=== PATIENT | female | born 1990 | race Caucasian/White ===

== ENCOUNTER 2017-03-20 19:06 | Emergency (ER) | payer MEDICAID ==
[2017-03-20] MEDS ORDERED: Sodium Chloride 0.9% 1,000 ML IV ONE (19:53)
--- NOTE | 2017-03-20 20:28 | EDM.PDOC ---
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 Patient indicates that she is and she is uncertain if she is at the end of her first trimester the beginning of her second trimester. It's her menstrual cycles have never been regular but she did have a baby 5 months ago and initiated sexual activity approximately 6 weeks after delivery. Review of systems: As per history of present illness and below otherwise all systems reviewed and negative. Past medical history: As per history of present illness and as reviewed below otherwise noncontributory. Surgical history: As per history of present illness and as reviewed below otherwise noncontributory. Social history: No reported history of drug or alcohol abuse. Family history: As per history of present illness and as reviewed below otherwise noncontributory. Physical exam: HEENT: Atraumatic, normocephalic, pupils reactive, negative for conjunctival pallor or scleral icterus, mucous membranes moist with oropharyngeal erythema without white patchy exudate, bilateral TMs noted to be red and dull and bulging , neck supple with some cervical lymphadenopathy, trachea midline. Lungs: Clear to auscultation, breath sounds equal bilaterally, chest nontender. Heart: S1S2, regular, negative for clicks, rubs, or JVD. Abdomen: Soft, nondistended, nontender. Negative for masses or hepatosplenomegaly. Negative for costovertebral tenderness. Pelvis: Stable nontender. Genitourinary: Pelvic exam revealed a closed cervical os with some amount of frothy yellow creamy discharge DNA samples obtained. Rectal: Deferred. Extremities: Atraumatic, negative for cords or calf pain. Neurovascular unremarkable. Neuro: Awake, alert, oriented. Cranial nerves II through XII unremarkable. Cerebellum unremarkable. Motor and sensory unremarkable throughout. Exam nonfocal. Ultrasound indicated a single live intrauterine of 15 weeks Diagnostics: [CBC, CMP, UA, hCG, DNA probe for treat Garden candidiasis, GC urine, ultrasound ] Therapeutics: [IV fluid, 250 mg of Rocephin IM 1 g of azithromycin by mouth and Flagyl 500 mg here with a prescription for 500 mg twice a day 7 days] Impression: [BV, yeast, trichomoniasis] Plan: [Medicated here follow-up with OB] Definitive disposition and diagnosis as appropriate pending reevaluation and review of above. abdomen Pain Score (Numeric/FACES): 10 - Related Data Allergies Allergy/AdvReac Type Severity Reaction Status Date / Time amoxicillin [From Augmentin] Allergy Hives Verified 03/20/17 19:29 cefdinir [From Omnicef] Allergy Hives Verified 03/20/17 19:29 clavulanic acid Allergy Hives Verified 03/20/17 19:29 [From Augmentin] erythromycin ethylsuccinate Allergy Hives Verified 03/20/17 19:29 [From Pediazole] Sulfa (Sulfonamide Allergy Hives Verified 03/20/17 19:29 Antibiotics) sulfisoxazole acetyl Allergy Hives Verified 03/20/17 19:29 [From Pediazole] Home Meds: Home Meds ALPRAZolam 1 tab PO DAILY PRN 08/04/15 [History] Albuterol Sulfate [Proair Respiclick] 2 puff IH Q4H PRN 08/04/15 [History] Escitalopram [Lexapro] 30 mg PO DAILY 08/04/15 [History] Acetaminophen/HYDROcodone [Spencer 325-5 MG] 1 tab PO Q4H PRN #30 tablet 08/05/15 [Rx] Levofloxacin [Levaquin] 750 mg PO DAILY #10 tab 08/05/15 [Rx] Metronidazole [IJD: metroNIDAZOLE] 500 mg PO .EVERY 12 HOURS #14 tab 03/20/17 [ Rx] Past Medical History HEENT History: Reports: None Cardiovascular History: Reports: None Respiratory History: Reports: Asthma Gastrointestinal History: Reports: Gastritis Genitourinary History: Reports: STD 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: Reports: Polycystic Ovaries, Musculoskeletal History: Reports: None Other Musculoskeletal History: scoliosis, buldging discs Neurological History: Reports: None Psychiatric History: Reports: Anxiety, Depression, Panic Attack, PTSD Endocrine/Metabolic History: Reports: Diabetes, Type II, Hyperthyroidism Other Endocrine/Metabolic History: DM resolved 4 years ago Hematologic History: Reports: Anemia Immunologic History: Reports: None Oncologic (Cancer) History: Reports: None Dermatologic History: Reports: None - Infectious Disease History Infectious Disease History: Reports: Chicken Pox - Past Surgical History HEENT Surgical History: Reports: Adenoidectomy, Myringotomy w Tube(s), Tonsillectomy Social & Family History - Family History HEENT: Reports: Allergic Rhinitis, Cataract, Glaucoma, Impaired Vision, Sinusitis, Other (See Below) Other HEENT Family History: Retinal stenosis Cardiac: Reports: Arrhythmia, Heart Murmur, [place], Stent Respiratory: Reports: Asthma, COPD, Other (See Below) Other Respiratory Family Hisory: Emphysema GI: Reports: Colon Polyps, Diverticulitis, GERD, Irritable Bowel Syndrome OBGYN: Reports: Musculoskeletal: Reports: Arthritis, Back pain, Chronic, Fibromyalgia, Osteoporosis, RA Neurological: Reports: Migraines, MS Psychiatric: Reports: Anxiety, Depression, OCD, Schizophrenia Endocrine/Metabolic: Reports: Diabetes, Type I, Diabetes, type II, Hyperthyroidism, Hypothyroidism, Osteoporosis, Vitamin D Deficiency, Other (See Below) Other Endocrine/Metabolic Family History: Graves disease Hematologic: Reports: Anemia Dermatologic: Reports: Psoriasis Oncologic: Reports: Breast, Colon, Ovarian - Tobacco Use Smoking Status *Q: Current Every Day Smoker Years of Tobacco use: 10 Packs/Tins Daily: 0.5 Used Tobacco, but Quit: No Second Hand Smoke Exposure: Yes - Caffeine Use Caffeine Use: Reports: Soda - Alcohol Use Days Per Week of Alcohol Use: 0 - Recreational Drug Use Recreational Drug Use: No Drug Use in Last 12 Months: No Recreational Drug Type: Reports: Marijuana/Hashish Recreational Drug Use Frequency: Not Used In Over 1 Year ED ROS GENERAL - Review of Systems Review Of Systems: See Below (See history of present illness) ED EXAM, GENERAL - Physical Exam Exam: See Below (See history of present illness) Course - Vital Signs Last Recorded V/S: Last Vital Signs Temp 36.2 C 03/20/17 23:43 Pulse 91 03/20/17 23:43 Resp 16 03/20/17 23:43 BP 119/80 03/20/17 23:43 Pulse Ox 98 03/20/17 23:43 - Orders/Labs/Meds Orders: Active Orders 24 hr Category Date Time Status OB 1st Tri Sgl 1st Gest [US] Stat Exams 03/20/17 19:50 Taken CHLAMYDIA TRACHOMATIS/GC AMPLF Stat Lab 03/20/17 21:41 Received CULTURE URINE [] Stat Lab 03/20/17 21:34 Received Labs: Laboratory Tests 03/20/17 03/20/17 03/20/17 Range/Units 20:11 20:11 20:11 WBC 14.80 H (4.0-11.0) K/uL RBC 4.35 (4.30-5.90) M/uL Hgb 12.5 (12.0-16.0) g/dL Hct 37.5 (36.0-46.0) % MCV 86.2 (80.0-98.0) fL MCH 28.7 (27.0-32.0) pg MCHC 33.3 (31.0-37.0) g/dL RDW Std Deviation 47.0 (28.0-62.0) fl RDW Coeff of Quinn 15 (11.0-15.0) % Plt Count 310 (150-400) K/uL MPV 9.30 (7.40-12.00) fL Neut % (Auto) 48.5 (48.0-80.0) % Lymph % (Auto) 36.7 (16.0-40.0) % [place] % (Auto) 6.4 (0.0-15.0) % Eos % (Auto) 8.2 H (0.0-7.0) % Baso % (Auto) 0.2 (0.0-1.5) % Neut # (Auto) 7.2 H (1.4-5.7) K/uL Lymph # (Auto) 5.4 H (0.6-2.4) K/uL [place] # (Auto) 1.0 H (0.0-0.8) K/uL Eos # (Auto) 1.2 H (0.0-0.7) K/uL Baso # (Auto) 0.0 (0.0-0.1) K/uL Nucleated RBC % 0.0 /100WBC Nucleated RBCs # 0 K/uL Sodium (136-146) mmol/L Potassium (3.5-5.1) mmol/L Chloride (98-110) mmol/L Carbon Dioxide (21-31) mmol/L BUN (6.0-23.0) mg/dL Creatinine (0.6-1.5) mg/dL Est Cr Clr Drug Dosing mL/min Estimated GFR (MDRD) ml/min Glucose (60-110) mg/dL Calcium (8.8-10.8) mg/dL Total Bilirubin (0.1-1.5) mg/dL AST (5-40) IU/L ALT (8-54) IU/L Alkaline Phosphatase (40-150) Total Protein (6.0-8.0) g/dL Albumin (3.5-5.0) g/dL Globulin (2.0-3.5) g/dL Albumin/Globulin Ratio (1.3-2.8) HCG, Quant 02332.4 mIU/mL Urine Color Urine Appearance Urine pH (5.0-8.0) Ur Specific Welcome (1.001-1.035) Urine Protein (NEGATIVE) mg/dL Urine Glucose (UA) (NEGATIVE) mg/dL Urine Ketones (NEGATIVE) mg/dL Urine Occult Blood (NEGATIVE) Urine Nitrite (NEGATIVE) Urine Bilirubin (NEGATIVE) Urine Urobilinogen (<2.0) EU/dL Ur Leukocyte Esterase (NEGATIVE) Urine RBC (0-2/HPF) Urine WBC (0-5/HPF) Ur Epithelial Cells (NONE-FEW) Urine Bacteria (NEGATIVE) Yisel species DNA (NEGATIVE) Gardnerella DNA Probe Trichomonas DNA Probe (NEGATIVE) Blood Type A POSITIVE 03/20/17 03/20/17 03/20/17 Range/Units 20:11 21:34 21:41 WBC (4.0-11.0) K/uL RBC (4.30-5.90) M/uL Hgb (12.0-16.0) g/dL Hct (36.0-46.0) % MCV (80.0-98.0) fL MCH (27.0-32.0) pg MCHC (31.0-37.0) g/dL RDW Std Deviation (28.0-62.0) fl RDW Coeff of Quinn (11.0-15.0) % Plt Count (150-400) K/uL MPV (7.40-12.00) fL Neut % (Auto) (48.0-80.0) % Lymph % (Auto) (16.0-40.0) % [place] % (Auto) (0.0-15.0) % Eos % (Auto) (0.0-7.0) % Baso % (Auto) (0.0-1.5) % Neut # (Auto) (1.4-5.7) K/uL Lymph # (Auto) (0.6-2.4) K/uL [place] # (Auto) (0.0-0.8) K/uL Eos # (Auto) (0.0-0.7) K/uL Baso # (Auto) (0.0-0.1) K/uL Nucleated RBC % /100WBC Nucleated RBCs # K/uL Sodium 138 (136-146) mmol/L Potassium 3.9 (3.5-5.1) mmol/L Chloride 106 (98-110) mmol/L Carbon Dioxide 21 (21-31) mmol/L BUN 5 L (6.0-23.0) mg/dL Creatinine 0.5 L (0.6-1.5) mg/dL Est Cr Clr Drug Dosing 153.43 mL/min Estimated GFR (MDRD) > 60.0 ml/min Glucose 82 (60-110) mg/dL Calcium 9.3 (8.8-10.8) mg/dL Total Bilirubin 0.3 (0.1-1.5) mg/dL AST 15 (5-40) IU/L ALT 10 (8-54) IU/L Alkaline Phosphatase 75 (40-150) Total Protein 6.8 (6.0-8.0) g/dL Albumin 4.0 (3.5-5.0) g/dL Globulin 2.8 (2.0-3.5) g/dL Albumin/Globulin Ratio 1.4 (1.3-2.8) HCG, Quant mIU/mL Urine Color YELLOW Urine Appearance CLEAR Urine pH 6.5 (5.0-8.0) Ur Specific Welcome <= 1.005 (1.001-1.035) Urine Protein NEGATIVE (NEGATIVE) mg/dL Urine Glucose (UA) NEGATIVE (NEGATIVE) mg/dL Urine Ketones NEGATIVE (NEGATIVE) mg/dL Urine Occult Blood NEGATIVE (NEGATIVE) Urine Nitrite NEGATIVE (NEGATIVE) Urine Bilirubin NEGATIVE (NEGATIVE) Urine Urobilinogen 0.2 (<2.0) EU/dL Ur Leukocyte Esterase NEGATIVE (NEGATIVE) Urine RBC 0-1 (0-2/HPF) Urine WBC 0-1 (0-5/HPF) Ur Epithelial Cells RARE (NONE-FEW) Urine Bacteria RARE (NEGATIVE) Yisel species DNA POSITIVE H (NEGATIVE) Gardnerella DNA Probe POSITIVE Trichomonas DNA Probe POSITIVE H (NEGATIVE) Blood Type Meds: Medications Discontinued Medications Generic Name Dose Route Start Last Admin Trade Name Oly PRN Reason Stop Dose Admin Azithromycin 1,000 mg 03/20/17 22:59 03/20/17 23:21 Zithromax PO 03/20/17 23:00 1,000 mg Q24H ONE Administration Ceftriaxone Sodium 250 mg 03/20/17 22:59 03/20/17 23:20 Rocephin IM 03/20/17 23:00 250 mg ONETIME ONE Administration Sodium Chloride 1,000 mls @ 999 mls/hr 03/20/17 19:53 03/20/17 20:12 Normal Saline IV 03/20/17 20:53 999 mls/hr STAT ONE Administration Lidocaine HCl Confirm 03/20/17 23:16 03/20/17 23:21 Xylocaine-Mpf 1% Administered 03/20/17 23:17 1 ml Dose Administration 2 mls @ as directed .ROUTE .STK-MED ONE Metronidazole 500 mg 03/20/17 23:00 03/20/17 23:22 Metronidazole PO 03/20/17 23:01 500 mg ONETIME ONE Administration Departure - Departure Time of Disposition: 23:50 Disposition: Home, Self-Care 01 Condition: Good Clinical Impression: Bacterial vaginosis, Candidal vulvovaginitis, Trichomoniasis of vagina - Discharge Information Prescriptions: Metronidazole [IJD: metroNIDAZOLE] 500 mg PO .EVERY 12 HOURS #14 tab Instructions: Vaginal Yeast Infection, Adult Referrals: PCP,None [Primary Care Provider] - Forms: ED Department Discharge Additional Instructions: The following information is given to patients seen in the emergency department who are being discharged to home. This information is to outline your options for follow-up care. We provide all patients seen in our emergency department with a follow-up referral. The need for follow-up, as well as the timing and circumstances, are variable depending upon the specifics of your emergency department visit. If you don't have a primary care physician on staff, we will provide you with a referral. We always advise you to contact your personal physician following an emergency department visit to inform them of the circumstance of the visit and for follow-up with them and/or the need for any referrals to a consulting specialist. The emergency department will also refer you to a specialist when appropriate. This referral assures that you have the opportunity for follow-up care with a specialist. All of these measure are taken in an effort to provide you with optimal care, which includes your follow-up. Under all circumstances we always encourage you to contact your private physician who remains a resource for coordinating your care. When calling for follow-up care, please make the office aware that this follow-up is from your recent emergency room visit. If for any reason you are refused follow-up, please contact the [facility] Emergency Department at and asked to speak to the emergency department charge nurse. You may go ahead and get [id number] yeast medication to apply topically as discussed per your preference You have been treated here for for the positive cultures as discussed Findings OB KASEY as discussed Return to ED as needed as discussed
[2017-03-20 21:21] LABS: CHLORIDE,CL 106 mmol/L (98-110); SODIUM,NA 138 mmol/L (136-146)
[2017-03-20] MEDS ORDERED: cefTRIAXone 250 MG Vial IM ONE (22:59)
[2017-03-20] MEDS ORDERED: Azithromycin 250 MG Tab PO ONE (22:59)
[2017-03-20] MEDS ORDERED: metroNIDAZOLE 250 MG Tab PO ONE (23:00)
[2017-03-20] MEDS ORDERED: Lidocaine 1% 2 ML ONE (23:16)
[2017-03-20 23:47] VITALS: BP 119/80
--- NOTE | 2017-03-21 10:03 | US ---
EXAM DATE: 03/20/17 PATIENT'S AGE: 26 Patient: LOU MOSCOSO Facility: [place], [place] Site . Site : 1990 Study: OB Pelvis [id number]/14/2017 9:26:01 PM Ordering Physician: Doctor Fish Final Report: INDICATION: Pelvic pain. TECHNIQUE: Ultrasound pelvis, OB transabdominal. COMPARISON: None available. FINDINGS: Single living intrauterine in cephalic presentation with heart rate of 150 beats per minute. Posterior placenta is otherwise unremarkable in appearance. Normal-appearing umbilical cord. Normal appearing amniotic fluid index of 10.9 cm. Closed cervical length of 3.4 cm. Bilateral ovaries are within normal limits. Normal-appearing color Doppler flow in the ovaries. Biparietal diameter is 3 cm corresponding to 15 weeks 3 days. Head circumference is 11.1 cm corresponding to 15 weeks 3 days. Abdominal circumference is 8.9 cm corresponding to 15 weeks 1 day. Femur length is 1.5 cm corresponding to 14 weeks 3 days. IMPRESSION: Single living intrauterine with estimated age of 15 weeks 0 days. Dictated by Tony Hernandez MD @ 03/20/2017 9:54:53 PM Dictated by: Tony Hernandez MD @ 03/20/2017 21:55:05 (Electronic Signature) Report Signed by Proxy. PEDRO
== END 2017-03-20 23:50 | disposition home or self-care (01) ==
LOC: MW.ED 19:06
DX: O98.312 Other infections with a predominantly sexual mode of transmission complicating pregnancy, second trimester (principal); A59.01 Trichomonal vulvovaginitis; O98.812 Other maternal infectious and parasitic diseases complicating pregnancy, second trimester; B37.3 Candidiasis of vulva and vagina; O99.342 Other mental disorders complicating pregnancy, second trimester; F41.0 Panic disorder [episodic paroxysmal anxiety]; F32.9 Major depressive disorder, single episode, unspecified; O99.282 Endocrine, nutritional and metabolic diseases complicating pregnancy, second trimester; E11.9 Type 2 diabetes mellitus without complications; O99.332 Smoking (tobacco) complicating pregnancy, second trimester; F17.210 Nicotine dependence, cigarettes, uncomplicated; Z86.2 Personal history of diseases of the blood and blood-forming organs and certain disorders involving the immune mechanism; Z96.22 Myringotomy tube(s) status; Z98.890 Other specified postprocedural states; Z88.1 Allergy status to other antibiotic agents; Z88.2 Allergy status to sulfonamides; Z79.899 Other long term (current) drug therapy; Z79.2 Long term (current) use of antibiotics; Z3A.15 15 weeks gestation of pregnancy
CPT/HCPCS: 36415; 76801; 80053; 81001; 84702; 85025; 86900; 86901; 87086; 87480; 87491; 87510; 87591; 87660; 96361; 96374; 99284; A9270; J0696; J7040

== ENCOUNTER 2017-04-03 16:48 | Emergency (ER) | payer MEDICAID ==
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
[2017-04-03 17:24] VITALS: BP 130/64
== END 2017-04-03 17:15 | disposition home or self-care (01) ==
LOC: MW.ED 16:48
DX: O99.89 Other specified diseases and conditions complicating pregnancy, childbirth and the puerperium (principal); R10.9 Unspecified abdominal pain; O99.512 Diseases of the respiratory system complicating pregnancy, second trimester; J45.909 Unspecified asthma, uncomplicated; O99.332 Smoking (tobacco) complicating pregnancy, second trimester; F17.210 Nicotine dependence, cigarettes, uncomplicated; O24.112 Pre-existing type 2 diabetes mellitus, in pregnancy, second trimester; E11.9 Type 2 diabetes mellitus without complications; O99.282 Endocrine, nutritional and metabolic diseases complicating pregnancy, second trimester; E05.90 Thyrotoxicosis, unspecified without thyrotoxic crisis or storm; O99.342 Other mental disorders complicating pregnancy, second trimester; F41.0 Panic disorder [episodic paroxysmal anxiety]; F32.9 Major depressive disorder, single episode, unspecified; Z86.2 Personal history of diseases of the blood and blood-forming organs and certain disorders involving the immune mechanism; Z79.899 Other long term (current) drug therapy; Z88.2 Allergy status to sulfonamides; Z3A.17 17 weeks gestation of pregnancy
CPT/HCPCS: 99282; 99283

== ENCOUNTER 2017-06-13 18:05 | Observation (INO) | payer MEDICAID ==
[2017-06-13] MEDS ORDERED: Ondansetron 4 MG Tab.DIS PO PRN (18:37)
[2017-06-13] MEDS ORDERED: hydrOXYzine Pamoate 25 MG Cap PO PRN (18:38)
[2017-06-13] MEDS: Betamethasone Acetate/Betamethasone Sod Phosphate 30 MG/5 ML MDV IM SCH (19:49)
[2017-06-13] MEDS: Lactated Ringers 1,000 ML IV SCH (20:15)
[2017-06-13] MEDS: Magnesium Hydroxide 400 MG/5 ML Susp 30 ML Cup PO PRN (21:38)
[2017-06-14] MEDS: Lactated Ringers 1,000 ML IV SCH ×2 (04:15→12:06)
[2017-06-14 07:28] VITALS: BP 109/61
[2017-06-14] MEDS: Magnesium Hydroxide 400 MG/5 ML Susp 30 ML Cup PO PRN ×2 (07:38→12:06)
[2017-06-14] MEDS: Acetaminophen 325 MG Tab PO PRN ×2 (08:17→14:00)
[2017-06-14] MEDS ORDERED: Prenatal Multivitamin and Multimineral with Iron Tab PO SCH (09:00)
[2017-06-14] MEDS: Betamethasone Acetate/Betamethasone Sod Phosphate 30 MG/5 ML MDV IM SCH (19:11)
== END 2017-06-14 19:18 | disposition home or self-care (01) ==
LOC: MW.OBCHECK 18:05 → MW.OB 18:06 → MW.OBCHECK 18:31 → MW.OB 18:31
PROVIDERS: ADMIT Obstetrics & Gynecology; ATTEND Obstetrics & Gynecology
DX: O60.02 Preterm labor without delivery, second trimester (principal); Z3A.27 27 weeks gestation of pregnancy; O99.89 Other specified diseases and conditions complicating pregnancy, childbirth and the puerperium; M54.9 Dorsalgia, unspecified; R10.2 Pelvic and perineal pain; K59.00 Constipation, unspecified
CPT/HCPCS: 59025; 87081; 96360; 96361; 96372; A9270; G0378; J0702; J7120

== ENCOUNTER 2017-08-22 16:09 | Inpatient (IN) | payer MEDICAID ==
[2017-08-22] MEDS ORDERED: Misoprostol 200 MCG Tab PO PRN (16:33)
[2017-08-22] MEDS ORDERED: Terbutaline 1 MG/ML SDV SUBCUT PRN (16:33)
[2017-08-22] MEDS ORDERED: Carboprost Tromethamine 250 MCG/1 ML Amp IM PRN (16:33)
[2017-08-22] MEDS ORDERED: Sodium Chloride 0.9% 10 ML Syringe FLUSH PRN (16:33)
[2017-08-22] MEDS ORDERED: Methylergonovine 0.2 MG/1 ML Amp IM PRN ×2 (16:33→23:30)
[2017-08-22] MEDS ORDERED: Sodium Chloride 0.9% 2.5 ML Syringe FLUSH PRN (16:33)
[2017-08-22] MEDS ORDERED: Lidocaine 1% 50 ML MDV INJECT PRN (16:33)
[2017-08-22] MEDS ORDERED: Water For Irrigation,Sterile 1,000 ML Container IRR PRN (16:33)
[2017-08-22] MEDS ORDERED: Nalbuphine 10 MG/1 ML Vial IVPUSH PRN (16:33)
[2017-08-22] MEDS ORDERED: Butorphanol 1 MG/ML SDV IVPUSH PRN (16:33)
[2017-08-22] MEDS ORDERED: Oxytocin/0.9 % Sodium Chloride 30 UNIT/500 ML BAG IV SCH ×2 (16:45)
[2017-08-22] MEDS ORDERED: Clindamycin Phosphate in D5W 900 MG in Premix Bag 1 BAG IV SCH ×2 (16:45)
[2017-08-22] MEDS: Lactated Ringers 1,000 ML IV SCH ×3 (17:15→21:56)
[2017-08-22] MEDS ORDERED: Ropivacaine HCl/PF 100 ML ONE (21:19)
[2017-08-22] MEDS ORDERED: fentaNYL 100 MCG/2 ML SDV ONE (21:19)
--- NOTE | 2017-08-22 21:54 | PCM.PREANE ---
Preanesthetic Assessment - Anesthesia/Transfusion/Family Hx Anesthesia History: Prior Anesthesia Without Reaction Transfusion History: No Prior Transfusion(s) - Review of Systems General: No Symptoms Pulmonary: No Symptoms Cardiovascular: No Symptoms Gastrointestinal: No Symptoms Neurological: No Symptoms Other: Reports: None - Physical Assessment NPO Status Date: 08/22/17 NPO Status Time: 21:53 (sips/chips) Blood Pressure: 123/75 Height: 5 ft 5 in Weight: 159 lb ASA Class: 2 Mental Status: Alert & Oriented x3 Airway Class: Mallampati = 2 Dentition: Reports: Normal Dentition Thyro-Mental Finger Breadths: 3 Mouth Opening Finger Breadths: 3 - Lab Values: Laboratory Last Values WBC 16.98 K/uL (4.0-11.0) H 08/22/17 17:02 RBC 3.93 M/uL (4.30-5.90) L 08/22/17 17:02 Hgb 11.0 g/dL (12.0-16.0) L 08/22/17 17:02 Hct 32.7 % (36.0-46.0) L 08/22/17 17:02 MCV 83.2 fL (80.0-98.0) 08/22/17 17:02 MCH 28.0 pg (27.0-32.0) 08/22/17 17:02 MCHC 33.6 g/dL (31.0-37.0) 08/22/17 17:02 RDW Std Deviation 49.2 fl (28.0-62.0) 08/22/17 17:02 RDW Coeff of Quinn 16 % (11.0-15.0) H 08/22/17 17:02 Plt Count 385 K/uL (150-400) 08/22/17 17:02 MPV 9.30 fL (7.40-12.00) 08/22/17 17:02 Nucleated RBC % 0.0 /100WBC 08/22/17 17:02 Nucleated RBCs # 0 K/uL 08/22/17 17:02 Blood Type A POSITIVE 08/22/17 17:02 Antibody Screen NEGATIVE 08/22/17 17:02 - Allergies Allergies/Adverse Reactions: Allergies Allergy/AdvReac Type Severity Reaction Status Date / Time erythromycin base Allergy Hives Verified 05/14/17 17:35 [From Pediazole] Sulfa (Sulfonamide Allergy Hives Verified 04/03/17 17:02 Antibiotics) sulfisoxazole Allergy Hives Verified 05/14/17 17:35 [From Pediazole] - Blood Blood Available: No Product(s) Available: None - Anesthesia Plan Free Text/Narrative:: Labor Epidural - Acknowledgements Anesthesia Type Planned: Epidural Pt an Appropriate Candidate for the Planned Anesthesia: Yes Alternatives and Risks of Anesthesia Discussed w Pt/Guardian: Yes Pt/Guardian Understands and Agrees with Anesthesia Plan: Yes PreAnesthesia Questionnaire - Past Health History Medical/Surgical History: Denies Medical/Surgical History HEENT History: Reports: None Cardiovascular History: Reports: None Respiratory History: Reports: Asthma Gastrointestinal History: Reports: Gastritis Genitourinary History: Reports: STD 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 HOST History: Reports: Polycystic Ovaries, Musculoskeletal History: Reports: None Other Musculoskeletal History: scoliosis, buldging discs Neurological History: Reports: None Psychiatric History: Reports: Anxiety, Depression, Panic Attack, PTSD Endocrine/Metabolic History: Reports: Diabetes, Type II, Hyperthyroidism Other Endocrine/Metabolic History: DM resolved 4 years ago Hematologic History: Reports: Anemia Immunologic History: Reports: None Oncologic (Cancer) History: Reports: None Dermatologic History: Reports: None - Infectious Disease History Infectious Disease History: Reports: Chicken Pox - Past Surgical History HEENT Surgical History: Reports: Adenoidectomy, Myringotomy w Tube(s), Tonsillectomy - SUBSTANCE USE Smoking Status *Q: Current Every Day Smoker Tobacco Use Within Last Twelve Months: Cigarettes Second Hand Smoke Exposure: Yes Days Per Week of Alcohol Use: 0 Recreational Drug Use History: No Recreational Drug Type: Reports: Marijuana/Hashish - HOME MEDS Home Medications: Home Meds ALPRAZolam 1 tab PO DAILY PRN 08/04/15 [History] - CURRENT (IN HOUSE) MEDS Current Meds: Current Medications Butorphanol Tartrate (Stadol) 1 mg IVPUSH Q1H PRN PRN Reason: Pain Carboprost Tromethamine (Hemabate Ds) 250 mcg IM ASDIRECTED PRN PRN Reason: Post Hemorrhage Clindamycin Phosphate 900 mg/ (Premix) 50 mls @ 100 mls/hr IV Q8H [facility] Last Admin: 08/22/17 17:24 Dose: 100 mls/hr Lactated Ringer's (Ringers, Lactated) 1,000 mls @ 150 mls/hr IV ASDIRECTED [facility] Last Admin: 08/22/17 21:22 Dose: 999 mls/hr Oxytocin/Sodium Chloride (Oxytocin 30 Unit/500 Ml-Ns) 30 unit in 500 mls @ 250 mls/hr IV TITRATE [facility] Oxytocin/Sodium Chloride (Oxytocin 30 Unit/500 Ml-Ns) 30 unit in 500 mls @ 2 mls/hr IV TITRATE [facility]; 2 MUNITS/MIN PRN Reason: Protocol Last Titration: 08/22/17 21:29 Dose: 10 munits/min, 10 mls/hr Lidocaine HCl (Xylocaine 1%) 50 ml INJECT .ONCE PRN PRN Reason: Laceration repair Methylergonovine Maleate (Methergine) 0.2 mg IM ASDIRECTED PRN PRN Reason: Post Hemorrhage Misoprostol (Cytotec) 200 mcg PO .ONCE PRN PRN Reason: Post Hemorrhage Nalbuphine HCl (Nubain) 10 mg IVPUSH Q1H PRN PRN Reason: Pain (severe 7-10) Last Admin: 08/22/17 19:41 Dose: 10 mg Sodium Chloride (Saline Flush) 10 ml FLUSH ASDIRECTED PRN PRN Reason: Keep Vein Open Sodium Chloride (Saline Flush) 2.5 ml FLUSH ASDIRECTED PRN PRN Reason: Keep Vein Open Sterile Water (Sterile Water For Irrigation) 1,000 ml IRR ASDIRECTED PRN PRN Reason: delivery Terbutaline Sulfate (Brethine) 0.25 mg SUBCUT ASDIRECTED PRN PRN Reason: Tacysystole Discontinued Medications Fentanyl (Sublimaze) Confirm Administered Dose 100 mcg .ROUTE .STK-MED ONE Stop: 08/22/17 21:20 Ropivacaine (Naropin 0.2%) Confirm Administered Dose 100 mls @ as directed .ROUTE .STK-MED ONE Stop: 08/22/17 21:20
[2017-08-22] MEDS ORDERED: Docusate Sodium 100 MG Cap PO PRN (23:30)
[2017-08-22] MEDS ORDERED: Benzocaine/Menthol 20%-0.5% Spray 78 GM Cannister TOP PRN (23:30)
[2017-08-22] MEDS ORDERED: Lanolin 100% Cream 7 GM Tube TOP PRN (23:30)
[2017-08-22] MEDS ORDERED: Ibuprofen 800 MG Tab PO PRN (23:30)
[2017-08-22] MEDS ORDERED: Witch Hazel Medicated Pads 40/Jar TOP PRN (23:30)
[2017-08-22] MEDS ORDERED: Bisacodyl 10 MG Supp RECTAL PRN (23:30)
--- NOTE | 2017-08-23 01:37 | OR ---
SURGEON: Marta Romero M.D. DATE OF PROCEDURE: 08/22/2017 PREOPERATIVE DIAGNOSES: A 37-5/7th week intrauterine , polyhydramnios, suspected intrauterine growth restriction, and abnormal testing. POSTOPERATIVE DIAGNOSES: A 37-5/7th week intrauterine , polyhydramnios, suspected intrauterine growth restriction, and abnormal testing. PROCEDURE: Pitocin induction of labor, term spontaneous vaginal delivery. ANESTHESIA: Epidural. ESTIMATED BLOOD LOSS: Less than 300 mL. FINDINGS: Live born female, score 8 and 9, weighing 2760 grams. Placenta spontaneous, Schultze intact with 3 vessels, perineum intact. BRIEF HISTORY: This is a 26-year-old female, she is G5, P 2-0-2-2, presents to Labor and Delivery after having had her weekly biophysical in the clinic. Ultrasound portion of the biophysical was 4 out of 8, and after approximately 1 hour of monitoring, she did have a reactive strip giving her an overall biophysical of 6 out of 10. Estimated weight by ultrasound was 5 pounds 2 ounces. With suspected IUGR, a decision was therefore made to proceed with induction of labor. She received Pitocin IV. She received an epidural for pain control. She did have category 1 heart tones throughout labor. She had artificial rupture of membranes. White meconium was noted. She progressed to complete. DESCRIPTION OF PROCEDURE: With the patient in dorsal lithotomy position, the patient pushed over a 3- minute time period to a 5+ station, at which time the head was delivered spontaneously and atraumatically over the perineum with support with subsequent delivery of the 's shoulders and body without any difficulty. The infant was bulb suctioned by nose and mouth, and after the cord had ceased to pulsate, it was doubly clamped and cut and the was handed to the mother in the presence of the nurse attending delivery. Dr. Barreto was also in attendance at delivery. The was a liveborn female, score 8 and 9, weighing 2760 grams. Cord blood was collected for cord ABGs as well as routine cord blood sampling. Pitocin was initiated after delivery of the infant to assist with delivery of the placenta which was delivered spontaneously, Schultze intact with 3 vessels. Upon inspection of the pelvis and perineum, there were no periurethral, vaginal sidewall, cervical, rectal, or perineal lacerations. Mother and baby are in LDRP in good condition. There were no known complications. Final sponge and instrument counts were correct. ELSA PATEL /[id number]
[2017-08-23] MEDS: Nicotine 14 MG/24 Hr Patch TRDERM SCH (03:55)
[2017-08-23] MEDS: Acetaminophen 500 MG Tab PO PRN ×3 (06:25→20:14)
--- NOTE | 2017-08-23 07:07 | PCM.PNPP ---
- General Info Functional Status: Reports: Pain Controlled, Tolerating Diet, Ambulating, Urinating - Review of Systems General: Reports: No Symptoms HEENT: Reports: No Symptoms Pulmonary: Reports: No Symptoms Cardiovascular: Reports: No Symptoms Gastrointestinal: Reports: No Symptoms Genitourinary: Reports: No Symptoms Musculoskeletal: Reports: No Symptoms Skin: Reports: No Symptoms Neurological: Reports: No Symptoms Psychiatric: Reports: No Symptoms - Patient Data Vital Signs - Most Recent: Last Vital Signs Temp Pulse Resp BP 123/75 08/22/17 21:54 Pulse Ox Weight - Most Recent: 72.121 kg Lab Results - Last 24 Hours: Laboratory Results - last 24 hr 08/22/17 08/22/17 08/23/17 Range/Units 17:02 17:02 05:32 WBC 16.98 H (4.0-11.0) K/uL RBC 3.93 L (4.30-5.90) M/uL Hgb 11.0 L 10.1 L (12.0-16.0) g/dL Hct 32.7 L 31.1 L (36.0-46.0) % MCV 83.2 (80.0-98.0) fL MCH 28.0 (27.0-32.0) pg MCHC 33.6 (31.0-37.0) g/dL RDW Std Deviation 49.2 (28.0-62.0) fl RDW Coeff of Quinn 16 H (11.0-15.0) % Plt Count 385 (150-400) K/uL MPV 9.30 (7.40-12.00) fL Nucleated RBC % 0.0 /100WBC Nucleated RBCs # 0 K/uL Blood Type A POSITIVE Antibody Screen NEGATIVE Med Orders - Current: Current Medications Acetaminophen (Tylenol Extra Strength) 1,000 mg PO Q4H PRN PRN Reason: Pain Last Admin: 08/23/17 06:25 Dose: 1,000 mg Benzocaine/Menthol (Dermoplast Pain Relief 20%-0.5% [place]) 78 gm TOP ASDIRECTED PRN PRN Reason: Perineal Comfort Measure Last Admin: 08/23/17 01:58 Dose: 1 can Bisacodyl (Dulcolax) 10 mg RECTAL .ONCE PRN PRN Reason: Constipation Docusate Sodium (Colace) 100 mg PO BID PRN PRN Reason: Constipation Emollient Ointment (Lansinoh Hpa) 0 gm TOP ASDIRECTED PRN PRN Reason: Sore Nipples Ketorolac Tromethamine (Toradol) 30 mg IVPUSH Q6H [facility] Stop: 08/28/17 07:00 Methylergonovine Maleate (Methergine) 0.2 mg IM .ONCE PRN PRN Reason: Excessive Vaginal Bleeding Nicotine (Habitrol) 14 mg TRDERM DAILY [facility] Last Admin: 08/23/17 03:55 Dose: 14 mg [place] G[place] (Tucks) 1 pad TOP ASDIRECTED PRN PRN Reason: comfort care Last Admin: 08/23/17 01:58 Dose: 1 tub Discontinued Medications Butorphanol Tartrate (Stadol) 1 mg IVPUSH Q1H PRN PRN Reason: Pain Carboprost Tromethamine (Hemabate Ds) 250 mcg IM ASDIRECTED PRN PRN Reason: Post Hemorrhage Fentanyl (Sublimaze) Confirm Administered Dose 100 mcg .ROUTE .STK-MED ONE Stop: 08/22/17 21:20 Clindamycin Phosphate 900 mg/ (Premix) 50 mls @ 100 mls/hr IV Q8H [facility] Last Admin: 08/22/17 17:24 Dose: 100 mls/hr Lactated Ringer's (Ringers, Lactated) 1,000 mls @ 150 mls/hr IV ASDIRECTED [facility] Last Admin: 08/22/17 21:56 Dose: 150 mls/hr Oxytocin/Sodium Chloride (Oxytocin 30 Unit/500 Ml-Ns) 30 unit in 500 mls @ 250 mls/hr IV TITRATE [facility] Oxytocin/Sodium Chloride (Oxytocin 30 Unit/500 Ml-Ns) 30 unit in 500 mls @ 2 mls/hr IV TITRATE [facility]; 2 MUNITS/MIN PRN Reason: Protocol Last Titration: 08/22/17 23:10 Dose: 999 munits/min, 999 mls/hr Ropivacaine (Naropin 0.2%) Confirm Administered Dose 100 mls @ as directed .ROUTE .STK-MED ONE Stop: 08/22/17 21:20 Ibuprofen (Motrin) 800 mg PO Q6H PRN PRN Reason: Pain Last Admin: 08/23/17 01:59 Dose: 800 mg Lidocaine HCl (Xylocaine 1%) 50 ml INJECT .ONCE PRN PRN Reason: Laceration repair Methylergonovine Maleate (Methergine) 0.2 mg IM ASDIRECTED PRN PRN Reason: Post Hemorrhage Misoprostol (Cytotec) 200 mcg PO .ONCE PRN PRN Reason: Post Hemorrhage Nalbuphine HCl (Nubain) 10 mg IVPUSH Q1H PRN PRN Reason: Pain (severe 7-10) Last Admin: 08/22/17 19:41 Dose: 10 mg Sodium Chloride (Saline Flush) 10 ml FLUSH ASDIRECTED PRN PRN Reason: Keep Vein Open Sodium Chloride (Saline Flush) 2.5 ml FLUSH ASDIRECTED PRN PRN Reason: Keep Vein Open Sterile Water (Sterile Water For Irrigation) 1,000 ml IRR ASDIRECTED PRN PRN Reason: delivery Last Admin: 08/22/17 23:27 Dose: 1,000 ml Terbutaline Sulfate (Brethine) 0.25 mg SUBCUT ASDIRECTED PRN PRN Reason: Tacysystole - Infant Interaction Infant Disposition, : at Bedside Support Person: Mother, Sister - Recovery Exam Fundal Tone: Firm Fundal Level: At Umbilicus Fundal Placement: Midline Lochia Amount: Scant Lochia Color: Rubra/Red Perineum Description: Intact, Minimal Bruising/Swelling Episiotomy/Laceration: None Bladder Status: Voiding Urinary Elimination: Voided - Exam General: Alert, Oriented Lungs: Normal Respiratory Effort GI/Abdominal Exam: Soft, Non-Tender, No Organomegaly, No Distention - Problem List & Annotations (1) IUGR (intrauterine growth retardation), delivered, current hospitalization SNOMED Code(s): 01037620 Code(s): O36.5990 - MATERN CARE FOR OTH OR SUSP POOR FETL GRTH, UNSP TRI, UNSP Status: Acute Current Visit: Yes (2) (spontaneous vaginal delivery) SNOMED Code(s): 12319318 Code(s): O80 - ENCOUNTER FOR FULL-TERM UNCOMPLICATED DELIVERY Status: Acute Priority: Medium Current Visit: No - Problem List Review Problem List Initiated/Reviewed/Updated: Yes - My Orders Last 24 Hours: My Active Orders 08/22/17 16:33 Bedrest Bathroom Privileges [RC] ASDIRECTED Communication Order [RC] ASDIRECTED Communication Order [RC] ASDIRECTED Heart Tones [RC] CONTINUOUS Non Stress Test [RC] PER UNIT ROUTINE May Shower [RC] ASDIRECTED Notify Provider [RC] PRN Notify Provider [RC] PRN Oxygen Therapy [RC] ASDIRECTED Up ad Soni [RC] ASDIRECTED Vaginal Exam [RC] PRN Vital Signs [RC] PER UNIT ROUTINE 08/22/17 23:27 Urinary Catheter Assessment [RC] ASDIRECTED 08/22/17 23:30 Acetaminophen [Tylenol Extra Strength] 1,000 mg PO Q4H PRN Benzocaine/Menthol [Dermoplast Pain Relief 20%-0.5% [place]] 78 gm TOP ASDIRECTED PRN Bisacodyl [Dulcolax] 10 mg RECTAL .ONCE PRN Docusate Sodium [Colace] 100 mg PO BID PRN Lanolin [Lansinoh HPA] See Dose Instructions TOP ASDIRECTED PRN Methylergonovine [Methergine] 0.2 mg IM .ONCE PRN Nicotine [Habitrol] 14 mg TRDERM DAILY [place] Bat[place] [Tucks] 1 pad TOP ASDIRECTED PRN Resuscitation Status Routine 08/22/17 23:31 Patient Status [ADT] Routine May Shower [RC] ASDIRECTED Up ad Soni [RC] ASDIRECTED Vital Signs [RC] PER UNIT ROUTINE Assess Lochia [WOMSER] Per Unit Routine Assess Uterine Involution [WOMSER] Per Unit Routine Peripheral IV Discontinue [OM.PC] Routine 08/23/17 02:30 Insert Urinary Catheter [OM.PC] Q24H 08/23/17 07:00 Ketorolac [Toradol] 30 mg IVPUSH Q6H 08/23/17 Breakfast Regular Diet [DIET] - Assessment Assessment:: PPD#1 after stable minimal lochia.on nicotrol patch for tobacco use - Plan Plan:: Continue care, start ketorolac due to complaint of back pain at epidural site and crampy pain. Dr. Butt will cover this weekend, anticipate home tomorrow.
[2017-08-23] MEDS: Ketorolac 30 MG/ML SDV IVPUSH SCH ×3 (08:00→22:28)
--- NOTE | 2017-08-23 14:01 | PCM48HPAN ---
Post Anesthesia Note - EVALUATION WITHIN 48HRS OF ANESTHETIC Vital Signs in Normal Range: Yes Patient Participated in Evaluation: No Respiratory Function Stable: Yes Airway Patent: Yes Cardiovascular Function Stable: Yes Hydration Status Stable: Yes Pain Control Satisfactory: Yes Nausea and Vomiting Control Satisfactory: Yes Mental Status Recovered: Yes - COMMENTS/OBSERVATIONS Free Text/Narrative:: c/o low back pain per RN. Pt up ambulating unable to interview
[2017-08-24] MEDS: Nicotine 14 MG/24 Hr Patch TRDERM SCH (00:38)
[2017-08-24] MEDS: Ketorolac 30 MG/ML SDV IVPUSH SCH (05:08)
--- NOTE | 2017-08-24 08:17 | PCM.PNPP ---
- General Info Date of Service: 08/24/17 Admission Dx/Problem (Free Text): 26 yo P3 s/p PPD2 Subjective Update: patient seen at bedside , complains of back pain. ambulating , voiding and tolerating regular diet Functional Status: Reports: Pain Controlled, Tolerating Diet, Ambulating, Urinating - Review of Systems General: Reports: No Symptoms HEENT: Reports: No Symptoms Pulmonary: Reports: No Symptoms Cardiovascular: Reports: No Symptoms Gastrointestinal: Reports: No Symptoms Genitourinary: Reports: No Symptoms Musculoskeletal: Reports: No Symptoms Skin: Reports: No Symptoms Neurological: Reports: No Symptoms - General Info Date of Service: 08/24/17 - Patient Data Vital Signs - Most Recent: Last Vital Signs Temp 37.2 C 08/23/17 20:00 Pulse 87 08/23/17 20:00 Resp 14 08/23/17 20:00 BP 121/75 08/23/17 20:00 Pulse Ox 100 08/23/17 20:00 Weight - Most Recent: 72.121 kg Med Orders - Current: Current Medications Acetaminophen (Tylenol Extra Strength) 1,000 mg PO Q4H PRN PRN Reason: Pain Last Admin: 08/23/17 20:14 Dose: 1,000 mg Benzocaine/Menthol (Dermoplast Pain Relief 20%-0.5% [place]) 78 gm TOP ASDIRECTED PRN PRN Reason: Perineal Comfort Measure Last Admin: 08/23/17 01:58 Dose: 1 can Bisacodyl (Dulcolax) 10 mg RECTAL .ONCE PRN PRN Reason: Constipation Docusate Sodium (Colace) 100 mg PO BID PRN PRN Reason: Constipation Last Admin: 08/23/17 08:00 Dose: 100 mg Emollient Ointment (Lansinoh Hpa) 0 gm TOP ASDIRECTED PRN PRN Reason: Sore Nipples Last Admin: 08/23/17 22:27 Dose: 1 tube Ketorolac Tromethamine (Toradol) 30 mg IVPUSH Q6H [facility] Stop: 08/28/17 07:00 Last Admin: 08/24/17 05:08 Dose: 30 mg Methylergonovine Maleate (Methergine) 0.2 mg IM .ONCE PRN PRN Reason: Excessive Vaginal Bleeding Nicotine (Habitrol) 14 mg TRDERM DAILY [facility] Last Admin: 08/24/17 00:38 Dose: Not Given [place] Batres (Tucks) 1 pad TOP ASDIRECTED PRN PRN Reason: comfort care Last Admin: 08/23/17 01:58 Dose: 1 tub Discontinued Medications Butorphanol Tartrate (Stadol) 1 mg IVPUSH Q1H PRN PRN Reason: Pain Carboprost Tromethamine (Hemabate Ds) 250 mcg IM ASDIRECTED PRN PRN Reason: Post Hemorrhage Fentanyl (Sublimaze) Confirm Administered Dose 100 mcg .ROUTE .STK-MED ONE Stop: 08/22/17 21:20 Clindamycin Phosphate 900 mg/ (Premix) 50 mls @ 100 mls/hr IV Q8H [facility] Last Admin: 08/22/17 17:24 Dose: 100 mls/hr Lactated Ringer's (Ringers, Lactated) 1,000 mls @ 150 mls/hr IV ASDIRECTED [facility] Last Admin: 08/22/17 21:56 Dose: 150 mls/hr Oxytocin/Sodium Chloride (Oxytocin 30 Unit/500 Ml-Ns) 30 unit in 500 mls @ 250 mls/hr IV TITRATE [facility] Oxytocin/Sodium Chloride (Oxytocin 30 Unit/500 Ml-Ns) 30 unit in 500 mls @ 2 mls/hr IV TITRATE [facility]; 2 MUNITS/MIN PRN Reason: Protocol Last Titration: 08/22/17 23:10 Dose: 999 munits/min, 999 mls/hr Ropivacaine (Naropin 0.2%) Confirm Administered Dose 100 mls @ as directed .ROUTE .STK-MED ONE Stop: 08/22/17 21:20 Ibuprofen (Motrin) 800 mg PO Q6H PRN PRN Reason: Pain Last Admin: 08/23/17 01:59 Dose: 800 mg Lidocaine HCl (Xylocaine 1%) 50 ml INJECT .ONCE PRN PRN Reason: Laceration repair Methylergonovine Maleate (Methergine) 0.2 mg IM ASDIRECTED PRN PRN Reason: Post Hemorrhage Misoprostol (Cytotec) 200 mcg PO .ONCE PRN PRN Reason: Post Hemorrhage Nalbuphine HCl (Nubain) 10 mg IVPUSH Q1H PRN PRN Reason: Pain (severe 7-10) Last Admin: 08/22/17 19:41 Dose: 10 mg Sodium Chloride (Saline Flush) 10 ml FLUSH ASDIRECTED PRN PRN Reason: Keep Vein Open Sodium Chloride (Saline Flush) 2.5 ml FLUSH ASDIRECTED PRN PRN Reason: Keep Vein Open Sterile Water (Sterile Water For Irrigation) 1,000 ml IRR ASDIRECTED PRN PRN Reason: delivery Last Admin: 08/22/17 23:27 Dose: 1,000 ml Terbutaline Sulfate (Brethine) 0.25 mg SUBCUT ASDIRECTED PRN PRN Reason: Tacysystole - Infant Interaction Infant Disposition, : at Bedside Support Person: Mother, Sister - Recovery Exam Fundal Tone: Firm Fundal Level: At Umbilicus Fundal Placement: Midline Lochia Amount: Scant Lochia Color: Rubra/Red Perineum Description: Intact, Minimal Bruising/Swelling Episiotomy/Laceration: None Bladder Status: Voiding Urinary Elimination: Voided - Exam General: Alert, Oriented HEENT: Pupils Equal, Pupils Reactive Lungs: Clear to Auscultation, Normal Respiratory Effort Cardiovascular: Regular Rate, Regular Rhythm GI/Abdominal Exam: Normal Bowel Sounds Psy/Mental Status: Alert - Problem List & Annotations (1) (spontaneous vaginal delivery) SNOMED Code(s): 21448925 Code(s): O80 - ENCOUNTER FOR FULL-TERM UNCOMPLICATED DELIVERY Status: Acute Priority: Medium Current Visit: No - Problem List Review Problem List Initiated/Reviewed/Updated: Yes - Assessment Assessment:: PPD#2 after stable minimal lochia.on nicotrol patch for tobacco use - Plan Plan:: Pain control with OTC tylenol and Motrin vitamins and Iron Follow up with [facility] in 6 weeks Call [facility] if Fever > 101, Heavy vaginal bleeding > 1pad in 1 hr
[2017-08-24 08:22] VITALS: BP 108/72
== END 2017-08-24 11:45 | disposition home or self-care (01) | DRG 775 ==
LOC: MW.OBCHECK 16:09 → MW.OB 16:30 → MW.OBCHECK 16:33 → OBSVTOIN 23:10
PROVIDERS: ADMIT Obstetrics & Gynecology; ATTEND Obstetrics & Gynecology
PROC: 10E0XZZ Delivery of Products of Conception, External Approach (ICD-10-PCS; principal; 2017-08-22)
PROC: 3E0P3VZ Introduction of Hormone into Female Reproductive, Percutaneous Approach (ICD-10-PCS; 2017-08-22)
DX: O40.3XX0 Polyhydramnios, third trimester, not applicable or unspecified (principal); O36.5930 Maternal care for other known or suspected poor fetal growth, third trimester, not applicable or unspecified; O99.334 Smoking (tobacco) complicating childbirth; Z3A.37 37 weeks gestation of pregnancy; Z37.0 Single live birth
CPT/HCPCS: 36415; 51702; 59025; 59409; 85014; 85018; 85027; 86850; 86900; 86901; A9270-GY; J1885; J2300; J2590; J2795; J3010; J7120

== ENCOUNTER 2021-08-05 16:31 | Emergency (ER) | payer MEDICAID ==
[2021-08-05] MEDS ORDERED: Sodium Chloride 0.9% 1,000 ML IV ONE (17:22)
[2021-08-05 17:30] VITALS: BP 144/95; PULSE 108
[2021-08-05 18:01] LABS: BLOOD UREA NITROGEN,BUN 13 mg/dL (7.0-18.0); CARBON DIOXIDE,CO2 32.1 mmol/L (21.0-32.0); CHLORIDE,CL 96 mmol/L (98-107); GLUCOSE RANDOM 153 mg/dL (74-106); LIPASE 28 U/L (73-393); POTASSIUM,K 3.4 mmol/L (3.5-5.1); SODIUM,NA 133 mmol/L (136-145)
[2021-08-05] MEDS ORDERED: Ondansetron 4 MG/2 ML SDV IVPUSH ONE (18:04)
[2021-08-05] MEDS ORDERED: Ketorolac 30 MG/ML SDV IVPUSH ONE (18:04)
--- NOTE | 2021-08-05 18:11 | EDM.PDOC ---
ED HPI GENERAL MEDICAL PROBLEM - General Chief Complaint: Gastrointestinal Problem Stated Complaint: ABDOMINAL PAIN Time Seen by Provider: 08/05/21 17:01 Source of Information: Reports: Patient History Limitations: Reports: No Limitations - History of Present Illness INITIAL COMMENTS - FREE TEXT/NARRATIVE: HISTORY AND PHYSICAL: History of present illness: Patient is a 30-year-old female who presents emergency room today with concern of right lower quadrant abdominal pain x2 days. Patient states that she is also had intermittent fevers off and on and is nauseous. Patient states that overall, she has been more constipated and has an issue with constipation at her baseline as she is on Suboxone. Patient states that she has been more constipated more than usual along with her other symptoms. Patient states she does have a history of scoliosis but denies any other health history. Patient states that she did take an Excedrin earlier today for her fever. Patient states that she did have Covid approximately 2 weeks ago Patient denies chest pain, shortness of breath, or cough. Denies headache, neck stiff ness, change in vision, syncope, or near syncope. Denies vomiting, diarrhea, or dysuria. Has not noted any blood in urine or stool. Patient has been eating and drinking appropriately. Review of systems: As per history of present illness and below otherwise all systems reviewed and negative. Past medical history: As per history of present illness and as reviewed below otherwise noncontributory. Surgical history: As per history of present illness and as reviewed below otherwise noncontributory. Social history: See social history for further information Family history: As per history of present illness and as reviewed below otherwise noncontribut ory. Physical exam: General: Patient is alert, oriented, and in no acute distress. Patient laying comfortably on exam table. Patient is tachycardic 115's on exam, otherwise vitally stable. Patient is tired appearing. HEENT: Atraumatic, normocephalic, pupils equal and reactive bilaterally, negative for conjunctival pallor or scleral icterus, mucous membranes moist, throat clear, neck supple, nontender, trachea midline. No drooling or trismus noted. No meningeal signs. No hot potato voice noted. Lungs: Clear to auscultation, breath sounds equal bilaterally, chest nontender. Heart: S1S2, regular rate and rhythm without overt murmur Abdomen: Soft, nondistended, moderate RLQ tenderness w/o guarding, negative rebound/Condon. Negative for masses or hepatosplenomegaly. Negative for costovertebral tenderness. Pelvis: Stable nontender. Genitourinary: Deferred. Rectal: Deferred. Skin: Intact, warm, dry. No lesions or rashes noted. Extremities: Atraumatic, negative for cords or calf pain. Neurovascular unremarkable. Neuro: Awake, alert, oriented. Cranial nerves II through XII unremarkable. Cerebellum unremarkable. Motor and sensory unremarkable throughout. Exam nonfocal. Medical Decision Making: Patient is an otherwise healthy 30-year-old female presents emergency room today with concern of right lower quadrant abdominal pain, decreased appetite/nausea, intermittent fever x2 days. Upon arrival to the ED, patient is tachycardic 115's on exam, otherwise vitally stable. Patient is tired appearing on exam but otherwise well. Patient does have moderate right lower quadrant tenderness without guarding, negative rebound and Condon. Will establish IV access, provide a dose of Toradol for pain at this time, and fluids. Will also obtain basic lab work and abdominal pelvic CT scan. CBC does show a leukocytosis at 13.62 otherwise mild derangements of CBC unremarkable. CMP does show mild hyponatremia at 133, hypokalemia at 3.4, hypochloremia at 96. Carbon dioxide is mildly elevated at 32.1. Glucose mildly elevated at 153. Alk phos mildly elevated in isolation at 132. Otherwise mild derangements of CMP unremarkable. hCG is negative. Urine does show trace protein with 40 ketones, concerning for possible dehydration. Moderate bilirubin with 2 urobilinogen. Patient does have 10-13 red blood cells with 0-2 white blood cells. Note that she is on her menstrual cycle at this time. Abdominal pelvic CT scan shows marked colonic bowel wall thickening and inflammatory change involving the ascending colon, and proximal and mid transverse colon most likely reflecting infectious or inflammatory colitis. Small amount of fluid in the pelvis. Normal appendix. Upon reevaluation of patient, she remains tachycardic 110s on exam, otherwise vitally stable. She does have improvement of her pain and discomfort today with therapeutics in the emergency room. Patient states that she has not had any blood in her stool and has not had any diarrhea and has been actually rather constipated. I did highly recommend admission to patient for continued IV antibiotics and monitoring given a known source of infection, her elevated white blood cell count, tachycardia, and concern for sepsis. However, patient declines requesting to leave the emergency room. The patient is clinically not intoxicated, free from distracting pain, appears to have intact insight, judgment and reason and in my medical opinion has the capacity to make decisions. The patient is also not under any duress to leave the hospital. In this scenario, it would be battery to subject a patient to treatment against her will. I have voiced my concerns for the patient's health given that a full evaluation and treatment had not occurred. I have discussed the need for continued evaluation to determine if her symptoms are caused by a condition that present risk of or morbidity. Risks including but not limited to , permanent disability, prolonged hospitalization, prolonged illness, were dis cussed. Because I have been unable to convince the patient to stay, I answered all of her questions about her condition and asked her to return to the ED as soon as possible to complete her evaluation, especially if her symptoms worsen or do not improve. I emphasized that leaving against medical advice does not preclude returning here for further evaluation. I asked the patient to return if she changes her mind about the further evaluation and treatment. I strongly encouraged the patient to return to this Emergency Department or any Emergency Department at any time, particularly with worsening symptoms. Given that patient is leaving the emergency room, I will provider with outpatient stool collection supplies for possible source of colitis. I will also send patient antibiotics to the pharmacy. I did discuss with patient the importance for follow-up with her primary care provider and for colonoscopy consideration with general surgery. Diagnostics: CBC, CMP, UA, serum hCG, lipase, lactate, blood cultures x2, abdominal pelvic CT scan Therapeutics: NS, Toradol, Zofran, Ciprofloxacin Prescription: Ciprofloxacin, outpatient stool studies Impression: Colitis SEPSIS Left against medical advice Plan: 1. Take medication as prescribed. Stool collection supplies have been provided to you. Once you are able to leave a stool sample, return this to the lab for further diagnostic completion. 2. Follow-up with a primary care provider/general surgery as discussed. Return to the ED as needed and as discussed. Definitive disposition and diagnosis as appropriate pending reevaluation and review of above. Bilateral Abdominal Pain Score (Numeric/FACES): 8 - Related Data Allergies Allergy/AdvReac Type Severity Reaction Status Date / Time erythromycin base Allergy Hives Verified 08/05/21 17:17 [From Pediazole] Sulfa (Sulfonamide Allergy Hives Verified 08/05/21 17:17 Antibiotics) sulfisoxazole Allergy Hives Verified 08/05/21 17:17 [From Pediazole] Home Meds: Home Meds ALPRAZolam 1 tab PO DAILY PRN 08/04/15 [History] Ibuprofen [IJD: Ibuprofen] 800 mg PO Q6H PRN #20 tablet 08/23/17 [Rx] Buprenorphine HCl/Naloxone HCl [Suboxone 4 mg-1 mg Sl Film] 08/05/21 [History] Ciprofloxacin [Ciprofloxacin HCl] 500 mg PO BID 5 Days #10 tab 08/05/21 [Rx] Phentermine HCl [Lomaira] 08/05/21 [History] dexAMETHasone [Dexamethasone] 08/05/21 [History] Past Medical History - Past Health History Medical/Surgical History: Denies Medical/Surgical History HEENT History: Reports: None Cardiovascular History: Reports: None Respiratory History: Reports: Asthma Gastrointestinal History: Reports: Gastritis Genitourinary History: Reports: [employer] History: Reports: Polycystic Ovaries, Musculoskeletal History: Reports: None Other Musculoskeletal History: scoliosis, buldging discs Neurological History: Reports: None Psychiatric History: Reports: Anxiety, Depression, Panic Attack, PTSD Endocrine/Metabolic History: Reports: Diabetes, Type II, Hyperthyroidism Other Endocrine/Metabolic History: DM resolved 4 years ago Hematologic History: Reports: Anemia Immunologic History: Reports: None Oncologic (Cancer) History: Reports: None Dermatologic History: Reports: None - Infectious Disease History Infectious Disease History: Reports: Chicken Pox - Past Surgical History HEENT Surgical History: Reports: Adenoidectomy, Myringotomy w Tube(s), Tonsillectomy Other HEENT Surgeries/Procedures: Myringotomy 14years ago Social & Family History - Family History Family Medical History: No Pertinent Family History HEENT: Reports: Allergic Rhinitis, Cataract, Glaucoma, Impaired Vision, Sinusi tis, Other (See Below) Other HEENT Family History: Retinal stenosis Cardiac: Reports: Arrhythmia, Heart Murmur, SD, Stent Respiratory: Reports: Asthma, COPD, Other (See Below) Other Respiratory Family Hisory: Emphysema GI: Reports: Colon Polyps, Diverticulitis, GERD, Irritable Bowel Syndrome OBGYN: Reports: Musculoskeletal: Reports: Arthritis, Back pain, Chronic, Fibromyalgia, Osteoporosis, RA Neurological: Reports: Migraines, MS Psychiatric: Reports: Anxiety, Depression, OCD, Schizophrenia Endocrine/Metabolic: Reports: Diabetes, Type I, Diabetes, type II, Hyperthyroidism, Hypothyroidism, Osteoporosis, Vitamin D Deficiency, Other (See Below) Other Endocrine/Metabolic Family History: Graves disease Hematologic: Reports: Anemia Dermatologic: Reports: Psoriasis Oncologic: Reports: Breast, Colon, Ovarian - Tobacco Use Tobacco Use Status *Q: Current Every Day Tobacco User Years of Tobacco use: 10 Packs/Tins Daily: 1 - Caffeine Use Caffeine Use: Reports: Coffee, Soda - Recreational Drug Use Recreational Drug Use: No ED ROS GENERAL - Review of Systems Review Of Systems: Comprehensive ROS is negative, except as noted in HPI. ED EXAM, GENERAL - Physical Exam Exam: See Below (see dictation) Course - Vital Signs Last Recorded V/S: Last Vital Signs Temp 98.6 F 08/05/21 17:29 Pulse 108 H 08/05/21 17:29 Resp 18 08/05/21 17:29 BP 144/95 H 08/05/21 17:29 Pulse Ox 99 08/05/21 17:29 - Orders/Labs/Meds Orders: Active Orders 24 hr Category Date Time Status C DIFFICILE AG/TOXIN W/REFLEX [RM] Stat Lab 08/05/21 19:27 Ordered CULTURE BLOOD [BC] Stat Lab 08/05/21 19:04 Received CULTURE BLOOD [BC] Stat Lab 08/05/21 19:14 Received OVA & PARASITES BY IMMUNOASSAY [MREF] Stat Lab 08/05/21 19:27 Ordered STOOL CULTURE/SHIGA TOXIN [MREF] Stat Lab 08/05/21 19:27 Ordered Blood Culture x2 Reflex Set [OM.PC] Stat Oth 08/05/21 18:10 Ordered Labs: Laboratory Tests 08/05/21 08/05/21 08/05/21 Range/Units 17:30 17:30 17:30 WBC 13.62 H (4.0-11.0) K/uL RBC 4.79 (4.30-5.90) M/uL Hgb 15.2 (12.0-16.0) g/dL Hct 43.5 (36.0-46.0) % MCV 90.8 (80.0-98.0) fL MCH 31.7 (27.0-32.0) pg MCHC 34.9 (31.0-37.0) g/dL RDW Std Deviation 43.3 (28.0-62.0) fl RDW Coeff of Quinn 13 (11.0-15.0) % Plt Count 251 (150-400) K/uL MPV 9.90 (7.40-12.00) fL Neut % (Auto) 68.4 (48.0-80.0) % Lymph % (Auto) 18.5 (16.0-40.0) % [place] % (Auto) 11.5 (0.0-15.0) % Eos % (Auto) 1.4 (0.0-7.0) % Baso % (Auto) 0.2 (0.0-1.5) % Neut # (Auto) 9.3 H (1.4-5.7) K/uL Lymph # (Auto) 2.5 H (0.6-2.4) K/uL [place] # (Auto) 1.6 H (0.0-0.8) K/uL Eos # (Auto) 0.2 (0.0-0.7) K/uL Baso # (Auto) 0.0 (0.0-0.1) K/uL Nucleated RBC % 0.0 /100WBC Nucleated RBCs # 0 K/uL Sodium 133 L (136-145) mmol/L Potassium 3.4 L (3.5-5.1) mmol/L Chloride 96 L (98-107) mmol/L Carbon Dioxide 32.1 H (21.0-32.0) mmol/L BUN 13 (7.0-18.0) mg/dL Creatinine 0.7 (0.6-1.0) mg/dL Est Cr Clr Drug Dosing 101.48 mL/min Estimated GFR (MDRD) > 60.0 ml/min Glucose 153 H (74-106) mg/dL Lactic Acid (0.4-2.0) mmol/L Calcium 8.5 (8.5-10.1) mg/dL Total Bilirubin 0.3 (0.2-1.0) mg/dL AST 16 (15-37) IU/L ALT 18 (14-63) IU/L Alkaline Phosphatase 132 H (46-116) U/L Total Protein 7.5 (6.4-8.2) g/dL Albumin 3.0 L (3.4-5.0) g/dL Globulin 4.5 H (2.6-4.0) g/dL Albumin/Globulin Ratio 0.7 L (0.9-1.6) Lipase 28 L (73-393) U/L HCG, Qual (NEG) Urine Color DARK YELLOW Urine Appearance SLT CLOUDY Urine pH 6.5 (5.0-8.0) Ur Specific Tatum >= 1.030 (1.001-1.035) Urine Protein TRACE H (NEGATIVE) mg/dL Urine Glucose (UA) NEGATIVE (NEGATIVE) mg/dL Urine Ketones 40 H (NEGATIVE) mg/dL Urine Occult Blood SMALL H (NEGATIVE) Urine Nitrite NEGATIVE (NEGATIVE) Urine Bilirubin MODERATE H (NEGATIVE) Urine Ictotest NEGATIVE Urine Urobilinogen 2.0 H (<2.0) EU/dL Ur Leukocyte Esterase NEGATIVE (NEGATIVE) Urine RBC 10-13 (0-2/HPF) Urine WBC 0-2 (0-5/HPF) Ur Epithelial Cells MODERATE (NONE-FEW) Urine Bacteria FEW (NEGATIVE) Urine Mucus HEAVY (NONE-MOD) 08/05/21 08/05/21 Range/Units 17:30 19:04 WBC (4.0-11.0) K/uL RBC (4.30-5.90) M/uL Hgb (12.0-16.0) g/dL Hct (36.0-46.0) % MCV (80.0-98.0) fL MCH (27.0-32.0) pg MCHC (31.0-37.0) g/dL RDW Std Deviation (28.0-62.0) fl RDW Coeff of Quinn (11.0-15.0) % Plt Count (150-400) K/uL MPV (7.40-12.00) fL Neut % (Auto) (48.0-80.0) % Lymph % (Auto) (16.0-40.0) % [place] % (Auto) (0.0-15.0) % Eos % (Auto) (0.0-7.0) % Baso % (Auto) (0.0-1.5) % Neut # (Auto) (1.4-5.7) K/uL Lymph # (Auto) (0.6-2.4) K/uL [place] # (Auto) (0.0-0.8) K/uL Eos # (Auto) (0.0-0.7) K/uL Baso # (Auto) (0.0-0.1) K/uL Nucleated RBC % /100WBC Nucleated RBCs # K/uL Sodium (136-145) mmol/L Potassium (3.5-5.1) mmol/L Chloride (98-107) mmol/L Carbon Dioxide (21.0-32.0) mmol/L BUN (7.0-18.0) mg/dL Creatinine (0.6-1.0) mg/dL Est Cr Clr Drug Dosing mL/min Estimated GFR (MDRD) ml/min Glucose (74-106) mg/dL Lactic Acid 0.6 (0.4-2.0) mmol/L Calcium (8.5-10.1) mg/dL Total Bilirubin (0.2-1.0) mg/dL AST (15-37) IU/L ALT (14-63) IU/L Alkaline Phosphatase (46-116) U/L Total Protein (6.4-8.2) g/dL Albumin (3.4-5.0) g/dL Globulin (2.6-4.0) g/dL Albumin/Globulin Ratio (0.9-1.6) Lipase (73-393) U/L HCG, Qual NEGATIVE (NEG) Urine Color Urine Appearance Urine pH (5.0-8.0) Ur Specific Tatum (1.001-1.035) Urine Protein (NEGATIVE) mg/dL Urine Glucose (UA) (NEGATIVE) mg/dL Urine Ketones (NEGATIVE) mg/dL Urine Occult Blood (NEGATIVE) Urine Nitrite (NEGATIVE) Urine Bilirubin (NEGATIVE) Urine Ictotest Urine Urobilinogen (<2.0) EU/dL Ur Leukocyte Esterase (NEGATIVE) Urine RBC (0-2/HPF) Urine WBC (0-5/HPF) Ur Epithelial Cells (NONE-FEW) Urine Bacteria (NEGATIVE) Urine Mucus (NONE-MOD) Meds: Medications Discontinued Medications Generic Name Dose Route Start Last Admin Trade Name Freq PRN Reason Stop Dose Admin Sodium Chloride 1,000 mls @ 999 mls/hr 08/05/21 17:22 08/05/21 17:32 Normal Saline IV 08/05/21 18:22 999 mls/hr BOLUS ONE Administration Ciprofloxacin/Dextrose 400 mg/ 200 mls @ 200 mls/hr 08/05/21 19:28 08/05/21 19:41 Premix IV 08/05/21 20:27 200 mls/hr NOW STA Administration Iopamidol 100 ml 08/05/21 18:28 08/05/21 18:29 Iopamidol 755 Mg/Ml 500 Ml Multipack Bottle IVPUSH 08/05/21 18:29 100 ml ONETIME STA Administration Ketorolac Tromethamine 30 mg 08/05/21 18:04 08/05/21 18:44 Ketorolac 30 Mg/Ml Sdv IVPUSH 08/05/21 18:05 30 mg ONETIME ONE Administration Ondansetron HCl 4 mg 08/05/21 18:04 08/05/21 18:44 Ondansetron 4 Mg/2 Ml Sdv IVPUSH 08/05/21 18:05 4 mg ONETIME ONE Administration Departure - Departure Time of Disposition: 20:50 Disposition: Against Medical Advice 07 Clinical Impression: Colitis, Left against medical advice - Discharge Information Prescriptions: Ciprofloxacin [Ciprofloxacin HCl] 500 mg PO BID 5 Days #10 tab Referrals: Keith Hurley MD [Primary Care Provider] - Forms: ED Department Discharge Additional Instructions: The following information is given to patients seen in the emergency department who are being discharged to home. This information is to outline your options for follow-up care. We provide all patients seen in our emergency department with a follow-up referral. The need for follow-up, as well as the timing and circumstances, are variable depending upon the specifics of your emergency department visit. If you don't have a primary care physician on staff, we will provide you with a referral. We always advise you to contact your personal physician following an emergency department visit to inform them of the circumstance of the visit and for follow-up with them and/or the need for any referrals to a consulting specialist. The emergency department will also refer you to a specialist when appropriate. This referral assures that you have the opportunity for follow-up care with a specialist. All of these measure are taken in an effort to provide you with optimal care, which includes your follow-up. Under all circumstances we always encourage you to contact your private physician who remains a resource for coordinating your care. When calling for follow-up care, please make the office aware that this follow-up is from your recent emergency room visit. If for any reason you are refused follow-up, please contact the [facility] Emergency Department at and asked to speak to the emergency department charge nurse. [facility] [address] [place] [address] [facility] [address] [place] [address] [facility] Professional [facility] [address] [facility], [address] [place] [address] 1. Take medication as prescribed. Stool collection supplies have been provided to you. Once you are able to leave a stool sample, return this to the lab for further diagnostic completion. 2. Follow-up with a primary care provider/general surgery as discussed. Return to the ED as needed and as discussed. Sepsis Event Note (ED) - Focused Exam Vital Signs: Vital Signs Temp Pulse Resp BP Pulse Ox 08/05/21 17:29 98.6 F 108 H 18 144/95 H 99 - My Orders Last 24 Hours: My Active Orders 08/05/21 18:10 Blood Culture x2 Reflex Set [OM.PC] Stat 08/05/21 19:04 CULTURE BLOOD [BC] Stat 08/05/21 19:14 CULTURE BLOOD [BC] Stat 08/05/21 19:27 C DIFFICILE AG/TOXIN W/REFLEX [RM] Stat OVA & PARASITES BY IMMUNOASSAY [MREF] Stat STOOL CULTURE/SHIGA TOXIN [MREF] Stat - Assessment/Plan Last 24 Hours: My Active Orders 08/05/21 18:10 Blood Culture x2 Reflex Set [OM.PC] Stat 08/05/21 19:04 CULTURE BLOOD [BC] Stat 08/05/21 19:14 CULTURE BLOOD [BC] Stat 08/05/21 19:27 C DIFFICILE AG/TOXIN W/REFLEX [RM] Stat OVA & PARASITES BY IMMUNOASSAY [MREF] Stat STOOL CULTURE/SHIGA TOXIN [MREF] Stat
[2021-08-05] MEDS ORDERED: Iopamidol 755 MG/ML 500 ML Multipack Bottle IVPUSH STA (18:28)
--- NOTE | 2021-08-05 18:59 | CT ---
Indication: Right upper quadrant pain Technique: Contrast enhanced CT abdomen pelvis 100 mL Isovue 370 Comparison: No comparison Findings: Heart size is normal. There is no pericardial effusion. The lung bases are clear. Liver spleen pancreas gallbladder and adrenal glands unremarkable. Symmetric enhancement of both kidneys no hydronephrosis. IUD in the uterus urinary bladder unremarkable. Normal appendix. Marked colonic bowel wall thickening involving the cecum ascending colon and proximal to mid transverse colon with pericolonic inflammatory change and fluid. Prominent right lower quadrant mesenteric nodes likely reactive small amount of fluid in the pelvis no suspicious bony lesions. Impression: 1. Marked colonic bowel wall thickening and inflammatory change involving the ascending colon, in proximal and mid transverse colon most likely reflecting infectious or inflammatory colitis. Small amount of fluid in the pelvis. Normal appendix. Please note that all CT scans at this facility use dose modulation, iterative reconstruction, and/or weight-based dosing when appropriate to reduce radiation dose to as low as reasonably achievable. Dictated by Doreen Montaño MD @ 08/05/2021 6:59:11 PM (Electronically Signed)
[2021-08-05] MEDS ORDERED: Ciprofloxacin in D5W 400 MG in Premix Bag 1 BAG IV STA ×2 (19:28)
== END 2021-08-05 20:57 | disposition left against medical advice (07) ==
LOC: MW.ED 16:31
DX: A41.9 Sepsis, unspecified organism (principal); K52.9 Noninfective gastroenteritis and colitis, unspecified; E11.9 Type 2 diabetes mellitus without complications; Z72.0 Tobacco use; Z88.1 Allergy status to other antibiotic agents; Z88.2 Allergy status to sulfonamides; Z53.8 Procedure and treatment not carried out for other reasons
CPT/HCPCS: 36415; 74177; 80053; 81001; 83605; 83690; 84703; 85025; 87040; 96365; 96375; 99284; J0744; J1885; J2405; J7030; Q9967

== ENCOUNTER 2022-04-15 13:56 | Emergency (ER) | payer MEDICAID ==
[2022-04-15] MEDS ORDERED: Ketorolac 60 MG/2 ML SDV IM ONE (15:09)
[2022-04-15 16:11] VITALS: BP 108/69; PULSE 71
== END 2022-04-15 15:54 | disposition home or self-care (01) ==
LOC: MW.ED 13:56
DX: S61.252A Open bite of right middle finger without damage to nail, initial encounter (principal); J45.909 Unspecified asthma, uncomplicated; E11.9 Type 2 diabetes mellitus without complications; Z88.1 Allergy status to other antibiotic agents; Z88.2 Allergy status to sulfonamides; Z86.16 Personal history of COVID-19; Z79.899 Other long term (current) drug therapy; W54.0XXA Bitten by dog, initial encounter
CPT/HCPCS: 73140; 96372; 99283; J1885

== ENCOUNTER 2022-07-28 12:29 | Emergency (ER) | payer MEDICAID ==
[2022-07-28] MEDS ORDERED: Ondansetron 4 MG/2 ML SDV IVPUSH ONE (13:01)
[2022-07-28] MEDS ORDERED: Sodium Chloride 0.9% 1,000 ML IV ONE ×2 (13:01→13:08)
[2022-07-28] MEDS ORDERED: Ketorolac 30 MG/ML SDV IVPUSH ONE (13:02)
[2022-07-28] MEDS ORDERED: HYDROmorphone 1 MG/ML Syringe IVPUSH ONE (13:02)
[2022-07-28 13:38] LABS: CARBON DIOXIDE,CO2 29.2 mmol/L (21.0-32.0); POTASSIUM,K 3.3 mmol/L (3.5-5.1)
[2022-07-28] MEDS ORDERED: fentaNYL 50 MCG/ML SDV IVPUSH ONE ×2 (14:59→16:49)
[2022-07-28] MEDS ORDERED: Piperacillin/Tazobactam 3.375 GM in Sodium Chloride 0.9% 50 ML IV ONE (15:00)
[2022-07-28] MEDS ORDERED: Pantoprazole 80 MG in Sodium Chloride 0.9% 10 ML IVPUSH ONE (15:04)
[2022-07-28] MEDS ORDERED: Iopamidol 755 Mg/ML 100 ML Bottle IVPUSH ONE (15:08)
[2022-07-28] MEDS ORDERED: fentaNYL 50 MCG/ML SDV IVPUSH STA (17:44)
[2022-07-28 17:52] VITALS: BP 115/79
[2022-07-28 18:05] VITALS: PULSE 115
== END 2022-07-28 18:11 ==
LOC: MW.ED 12:29
DX: K25.1 Acute gastric ulcer with perforation (principal); E86.0 Dehydration; J45.909 Unspecified asthma, uncomplicated; E11.9 Type 2 diabetes mellitus without complications; R00.0 Tachycardia, unspecified; Z88.1 Allergy status to other antibiotic agents; Z88.2 Allergy status to sulfonamides; Z79.899 Other long term (current) drug therapy
CPT/HCPCS: 36415; 74177; 80053; 81003; 83605; 83690; 84703; 85025; 87040; 93005; 96361; 96365; 96367; 96375; 96376; 99285; C9113; J1170; J1885; J2405; J2543; J3010; J3370; J3490; J7030; J7050; Q9967; 93010

== ENCOUNTER 2023-11-08 11:35 | Emergency (ER) | payer MEDICAID ==
[2023-11-08] MEDS ORDERED: Ondansetron 4 MG Tab.DIS PO ONE (12:09)
[2023-11-08 12:38] LABS: BASOPHILS ABSOLUTE AUTO 0.05 K/uL (0.00-0.20); BASOPHILS PERCENT AUTO 0.4 % (0.0-1.0); EOSINOPHILS ABSOLUTE AUTO 0.52 K/uL (0.00-0.45); EOSINOPHILS PERCENT AUTO 4.2 % (0.0-6.0); HEMATOCRIT 43.7 % (37.0-47.0); HEMOGLOBIN 15.1 g/dL (12.0-16.0); IMMATURE GRAN ABSOLUTE AUTO 0.04 K/uL (0.00-0.05); IMMATURE GRAN PERCENT AUTO 0.3 % (0.0-0.4); LYMPHOCYTES ABSOLUTE AUTO 1.73 K/uL (1.00-4.80); MEAN CORPUSCULAR HEMOGLOBIN 32.3 pg (28.0-32.0); MEAN CORPUSCULAR HGB CONC 34.6 g/dL (32.0-36.0); MEAN CORPUSCULAR VOLUME 93.4 fL (83.0-99.0); MEAN PLATELET VOLUME 8.9 fL (9.4-12.3); MONOCYTES PERCENT AUTO 4.9 % (0.0-8.0); NEUTROPHILS ABSOLUTE AUTO 9.38 K/uL (1.80-7.70); NEUTROPHILS PERCENT AUTO 76.2 % (41.0-71.0); PLATELET COUNT,PLT 334 K/uL (150-400); RED BLOOD CELL COUNT 4.68 M/uL (4.10-5.30); WHITE BLOOD CELL COUNT,WBC 12.32 K/uL (3.9-11.3)
[2023-11-08 13:01] LABS: APPEARANCE,URINE CLEAR; BILIRUBIN,URINE NEGATIVE (NEGATIVE); COLOR,URINE YELLOW; GLUCOSE,URINE NEGATIVE (NEGATIVE); KETONES,URINE NEGATIVE (NEGATIVE); LEUKOCYTE ESTERASE,URINE NEGATIVE (NEGATIVE); NITRITE,URINE NEGATIVE (NEGATIVE); OCCULT BLOOD,URINE TRACE-INTACT (NEGATIVE); PH,URINE 5.5 (5.0-8.0); PROTEIN,URINE NEGATIVE (NEGATIVE); UROBILINOGEN,URINE 0.2 EU/dL (<2.0)
[2023-11-08 13:14] LABS: A/G RATIO 1.1 (0.9-1.6); ALBUMIN 3.9 g/dL (3.4-5.0); BILIRUBIN TOTAL 0.5 mg/dL (0.2-1.0); CALCIUM 8.9 mg/dL (8.5-10.1); CREATININE 0.6 mg/dL (0.6-1.0); POTASSIUM,K 4.5 mmol/L (3.5-5.1); PROTEIN TOTAL,TP 7.4 g/dL (6.4-8.2)
[2023-11-08 13:18] LABS: BACTERIA,URINE FEW (NEGATIVE); EPITHELIAL CELLS,URINE FEW (NONE-FEW); RBC,URINE 0-2 (0-2/HPF); WBC,URINE 0-2 (0-5/HPF)
[2023-11-08 13:46] LABS: CORONAVIRUS COVID-19 NAA NEGATIVE (NEGATIVE); INFLUENZA A NAA NEGATIVE (NEGATIVE); INFLUENZA B NAA NEGATIVE (NEGATIVE); RESPIRATORY SYNCYTIAL VIR NAA NEGATIVE (NEGATIVE)
[2023-11-08] MEDS ORDERED: Iopamidol 755 MG/ML 500 ML Multipack Bottle IVPUSH STA (14:04)
[2023-11-09 08:25] VITALS: BP 119/81; PULSE 109
== END 2023-11-08 15:15 | disposition home or self-care (01) ==
LOC: MW.ED 11:35
DX: R10.30 Lower abdominal pain, unspecified (principal); E11.9 Type 2 diabetes mellitus without complications; E03.9 Hypothyroidism, unspecified; Z86.16 Personal history of COVID-19; Z79.899 Other long term (current) drug therapy; Z88.1 Allergy status to other antibiotic agents; Z88.2 Allergy status to sulfonamides
CPT/HCPCS: 0241U; 36415; 74177; 80053; 81001; 81025; 83605; 83690; 85025; 87086; 99284; A9270; Q9967

== ENCOUNTER 2024-12-29 07:38 | Day surgery (SDC) | payer MEDICAID ==
[~2024-12-29 07:38] MED LIST: Lactated Ringers 1,000 ML IV SCH; Lidocaine 2% 5 ML SDV ONE; Sodium Chloride 0.9% 10 ML Syringe FLUSH PRN; Sodium Chloride 0.9% 2.5 ML Syringe FLUSH PRN; Sodium Chloride 0.9% 20 ML SDV IV PRN; propofoL 500 MG/50 ML 50 ML ONE
[2024-12-29] MEDS: Lactated Ringers 1,000 ML IV SCH (08:12)
[2024-12-29] MEDS: Ondansetron 4 MG/2 ML SDV IVPUSH ONE (08:12)
[2024-12-29] MEDS ORDERED: fentaNYL 100 MCG/2 ML SDV ONE (08:51)
[2024-12-29] MEDS: Ondansetron 4 MG/2 ML SDV ONE (08:56)
[2024-12-29] MEDS ORDERED: Propofol 200 MG/20 ML SDV ONE (09:05)
[2024-12-29 13:16] VITALS: BP 106/72; PULSE 89
== END 2024-12-29 10:00 | disposition home or self-care (01) ==
LOC: MW.SDS 07:38
PROVIDERS: ATTEND Surgery
DX: Z12.11 Encounter for screening for malignant neoplasm of colon (principal); K63.5 Polyp of colon; K20.0 Eosinophilic esophagitis; Z80.0 Family history of malignant neoplasm of digestive organs; K21.9 Gastro-esophageal reflux disease without esophagitis; F32.A Depression, unspecified; F41.9 Anxiety disorder, unspecified; J45.909 Unspecified asthma, uncomplicated; Z86.0100 Personal history of colon polyps, unspecified; Z79.899 Other long term (current) drug therapy; Z88.2 Allergy status to sulfonamides
CPT/HCPCS: 43239; 45380; 81025; J2003; J2405; J2704; J3010; J7120; 00813